=== PATIENT | male | born 1950 | race Caucasian/White ===

== ENCOUNTER 2019-08-18 17:09 | Emergency (ER) | payer MEDICARE, OTHER ==
[~2019-08-18] VITALS: Ht 172.7 cm; Wt 99.8 kg
[~2019-08-18 17:09] MED LIST: BACTRIM DS TAB1 EAC1 ORAL; LIDODERM700 M1 TOPIC
--- NOTE | 2019-08-18 17:22 | NUR ---
ED Nurse Note: PT AMBUALTED TO ED WITH CANE ON STEADY GAIT DUE TO SHORTNESS OF BREATH AND BACK PAIN X 4 DAYS. PT STATES HE HAS HX OF COPD. NO NAD NOTED
[2019-08-18 17:25] VITALS: BP 155/77
--- NOTE | 2019-08-18 17:30 | NUR ---
ED Nurse Note: blood specimen collected, sent to lab.
--- NOTE | 2019-08-18 18:00 | NUR ---
ED Nurse Note: IV site established, patent and intact.
[2019-08-18 18:23] LABS: ANION GAP 5 mmol/L (5-15); BLOOD UREA NITROGEN 41 mg/dL (7-18); CALCIUM 8.8 MG/DL (8.5-10.1); CARBON DIOXIDE 30 MMOL/L (21-32); CHLORIDE 107 MMOL/L (98-107); CREATININE 1.6 MG/DL (0.55-1.30); POTASSIUM 5.8 MMOL/L (3.5-5.1); SODIUM 142 MMOL/L (136-145)
[2019-08-18 18:28] LABS: ALANINE AMINOTRANSFERASE 14 U/L (12-78); ALBUMIN/GLOBULIN RATIO 0.7 (1.0-2.7); ALKALINE PHOSPHATASE 81 U/L (46-116); ASPARTATE AMINO TRANSFERASE 22 U/L (15-37); BILIRUBIN,TOTAL 0.3 MG/DL (0.2-1.0)
[2019-08-18] MEDS ORDERED: Albuterol ud Inhalation HHN ONE (18:30)
[2019-08-18] MEDS ORDERED: LORazepam 1mg tab ORAL ONE (18:30)
[2019-08-18] MEDS ORDERED: Nitroglycerin 2% oint pkt TOPIC ONE (18:30)
[2019-08-18 18:31] LABS: BASOPHILS % (AUTO) 3.4 % (0.0-2.0); EOSINOPHILS % (AUTO) 2.2 % (0.0-3.0); HEMATOCRIT 38.3 % (42.0-52.0); HEMOGLOBIN 11.6 G/DL (14.2-18.0); LYMPHOCYTES % (AUTO) 17.3 % (20.0-45.0); MEAN CORPUSCULAR VOLUME 91 FL (80-99); MONOCYTES % (AUTO) 13.6 % (1.0-10.0); NEUTROPHILS % (AUTO) 63.4 % (45.0-75.0); PLATELET COUNT 169 K/UL (150-450); RED BLOOD COUNT 4.19 M/UL (4.70-6.10); RED CELL DISTRIBUTION WIDTH 14.9 % (11.6-14.8); WHITE BLOOD COUNT 6.5 K/UL (4.8-10.8)
--- NOTE | 2019-08-18 19:06 | NUR ---
HAND-OFF: Report given to ozzie persaud. urine sent to lab
[2019-08-18 19:30] VITALS: BP 155/77
--- NOTE | 2019-08-18 19:30 | NUR ---
AMA: SEE AMA FORM.
--- NOTE | 2019-08-18 19:31 | NUR ---
ED Nurse Note: Patient decided to leave AMA. Stated he should lock his apartment accross the street. Patient was able to walk with cane, AAO x4, VSS at this time, skin is dry warm to touch. Patient stated will come back and register him self later.
--- NOTE | 2019-08-18 19:52 | Emergency Room Report ---
History of Present Illness General Chief Complaint: Dyspnea/Respdistress Source: Patient Present Illness HPI This patient has a history of congestive heart failure and COPD. He takes diuretics, antihypertensives and has inhalers for his COPD. He does continue to smoke tobacco. He complains of shortness of breath and difficulty sleeping at night secondary to the shortness of breath for the past 4 to 5 days. He denies cough or congestion. He denies fever chills. He denies abdominal pain. He has no other complaints. Allergies: Coded Allergies: No Known Allergies (Unverified , 08/04/19) Patient History Past Medical History: see triage record, HTN, PR, CAD, CHF Social History: Reports: smoking; Denies: alcohol use, drug use Reviewed Nursing Documentation: PMH: Agreed; PSxH: Agreed Nursing Documentation-PMH Past Medical History: No History, Except For Hx Cardiac Problems: Yes - CHF Hx Hypertension: Yes Hx Asthma: Yes Hx COPD: Yes Review of Systems All Other Systems: negative except mentioned in HPI Physical Exam Vital Signs Date Time Temp Pulse Resp B/P (MAP) Pulse Ox O2 Delivery O2 Flow Rate FiO2 08/18/19 17:16 98.1 96 23 155/77 (103) 78 Room Air 08/18/19 18:55 2.0 28 Sp02 EP Interpretation: reviewed, normal General Appearance: no apparent distress, alert, GCS 15, non-toxic Head: normocephalic, atraumatic Eyes: bilateral eye normal inspection, bilateral eye PERRL ENT: hearing grossly normal, normal pharynx, no angioedema, normal voice Neck: full range of motion, supple/symm/no masses Respiratory: chest non-tender, rales, speaking full sentences, wheezing, expiration Cardiovascular #1: regular rate, rhythm, no edema, edema - +2 pitting edema BLE Gastrointestinal: normal bowel sounds, non tender, soft, non-distended, no guarding, no rebound Rectal: deferred Musculoskeletal: back normal, normal range of motion, gait/station normal, non- tender, swelling - BLE edema w/ venous stasis dermatitis Neurologic: alert, motor strength/tone normal, oriented x3, sensory intact, responsive, speech normal Psychiatric: judgement/insight normal, memory normal, mood/affect normal, no suicidal/homicidal ideation Medical Decision Making Diagnostic Impression: Primary Impression: CHF exacerbation Additional Impression: COPD exacerbation ER Course This patient has CHF exacerbation. Also, he likely has a COPD exacerbation. The patient smelled heavily of tobacco and is continuing to smoke despite his COPD. He was also wheezing had rails on exam. I treated both the COPD and the congestive heart failure. He was given IV Lasix, Nitropaste to his chest wall and albuterol nebulizer treatments. Patient continued to have wheezing and shortness of breath. I plan on admitting this patient, however, he left AGAINST MEDICAL ADVICE stating that he needed to secure his home and that he would return. He insisted on leaving and is competent to make his own medical decisions. The patient left AGAINST MEDICAL ADVICE. Laboratory Tests Test 08/18/19 16:20 08/18/19 18:00 08/18/19 19:01 White Blood Count 6.5 K/UL (4.8-10.8) Red Blood Count 4.19 M/UL (4.70-6.10) L Hemoglobin 11.6 G/DL (14.2-18.0) L Hematocrit 38.3 % (42.0-52.0) L Mean Corpuscular Volume 91 FL (80-99) Mean Corpuscular Hemoglobin 27.7 PG (27.0-31.0) Mean Corpuscular Hemoglobin Concent 30.3 G/DL (32.0-36.0) L Red Cell Distribution Width 14.9 % (11.6-14.8) H Platelet Count 169 K/UL (150-450) Mean Platelet Volume 9.3 FL (6.5-10.1) Neutrophils (%) (Auto) 63.4 % (45.0-75.0) Lymphocytes (%) (Auto) 17.3 % (20.0-45.0) L Monocytes (%) (Auto) 13.6 % (1.0-10.0) H Eosinophils (%) (Auto) 2.2 % (0.0-3.0) Basophils (%) (Auto) 3.4 % (0.0-2.0) H Sodium Level 142 MMOL/L (136-145) Potassium Level 5.8 MMOL/L (3.5-5.1) H Chloride Level 107 MMOL/L (98-107) Carbon Dioxide Level 30 MMOL/L (21-32) Anion Gap 5 mmol/L (5-15) Blood Urea Nitrogen 41 mg/dL (7-18) H Creatinine 1.6 MG/DL (0.55-1.30) H Estimate Glomerular Filtration Rate 43.2 mL/min (>60) Glucose Level 106 MG/DL (74-106) Calcium Level 8.8 MG/DL (8.5-10.1) Total Bilirubin 0.3 MG/DL (0.2-1.0) Aspartate Amino Transferase (AST) 22 U/L (15-37) Alanine Aminotransferase (ALT) 14 U/L (12-78) Alkaline Phosphatase 81 U/L (46-116) Troponin I 0.000 ng/mL (0.000-0.056) Total Protein 7.5 G/DL (6.4-8.2) Albumin 3.0 G/DL (3.4-5.0) L Globulin 4.5 g/dL Albumin/Globulin Ratio 0.7 (1.0-2.7) L Urine Opiates Screen Pending Urine Barbiturates Screen Pending Phencyclidine (PCP) Screen Pending Urine Amphetamines Screen Pending Urine Benzodiazepines Screen Pending Urine Cocaine Screen Pending Urine Marijuana (THC) Screen Pending EKG Diagnostic Results Rate: normal Rhythm: NSR ST Segments: no acute changes Other Impression RBBB Rhythm Strip Diag. Results EP Interpretation: yes Rate: 80's Rhythm: NSR, no PVC's, no ectopy Chest X-Ray Diagnostic Results Chest X-Ray Diagnostic Results : Chest X-Ray Ordered: Yes # of Views/Limited/Complete: 1 View Indication: Shortness of Breath EP Interpretation: Yes Interpretation: other - Diffuse patchy opacities Impression: Other - Findings c/w CHF Last Vital Signs Date Time Temp Pulse Resp B/P (MAP) Pulse Ox O2 Delivery O2 Flow Rate FiO2 08/18/19 18:55 91 23 99 Nasal Cannula 2.0 28 88 21 96 08/18/19 18:29 155/77 08/18/19 17:25 98.1 Disposition: AGAINST MEDICAL ADVICE Condition: Serious Scripts Unable to Obtain Active Prescriptions or Reported Meds Referrals: NOT CHOSEN IPA/,REFERRING (PCP) Jessi Zavala DO Aug 18, 2019 19:52
--- NOTE | 2019-08-19 13:55 | Diagnostic Imaging Report ---
Indication: Dyspnea Comparison: None A single view chest radiograph was obtained. Findings: No definite infiltrate or pulmonary vascular congestion identified. The heart is enlarged. The aorta is mildly enlarged consistent with atherosclerotic vascular disease. The bones are osteopenic. Impression: No acute disease
== END 2019-08-18 19:30 | disposition left against medical advice (07) ==
LOC: EDSEX → EMR 17:45 → CANBEDREQ 19:49
DX: I11.0 Hypertensive heart disease with heart failure (principal); I50.9 Heart failure, unspecified; J44.1 Chronic obstructive pulmonary disease with (acute) exacerbation; I25.2 Old myocardial infarction
CPT/HCPCS: 36415; 71045; 80053; 80307; 84484; 85025; 93005; 96374; 99284; J1940

== ENCOUNTER 2019-08-21 23:20 | Inpatient (IN) | payer MEDICARE, OTHER ==
[~2019-08-21] VITALS: Ht 162.6 cm; Wt 99.8 kg
--- NOTE | 2019-08-21 23:34 | NUR ---
ED Nurse Note: PT AMBULATED INTO ED FROM HOME CO SOB X 4 DAYS AND. PT REPORTS HX OF CHF AND COPD. PT DENIES USING OXYGEN AT HOME. PT DENIES HAVING PAIN, FEVER, BODY ACHES, CHILLS. PT SPO2 86% RA; APPLIED 4L OXYGEN NC TO ACHIEVE 95% SPO2. ERMD AWARE. AWAITING ERMD AT BEDSIDE
[2019-08-21 23:35] VITALS: BP 128/65
--- NOTE | 2019-08-21 23:40 | NUR ---
ED Nurse Note: ERMD AT BEDSIDE
[2019-08-22] VITALS (8 sets, daily range): BP systolic 112–151; BP diastolic 53–90
--- NOTE | 2019-08-22 00:05 | NUR ---
ED Nurse Note: ALL BLOOD WORK DRAWN AND SENT TO LAB
--- NOTE | 2019-08-22 00:09 | Emergency Room Report ---
History of Present Illness General Chief Complaint: Dyspnea/Respdistress Source: Patient Present Illness HPI This is a 69-year-old male with a history of COPD. He also said he has a history of CHF. He continues to smoke but much less. He presents with chief plane of shortness of breath. This been ongoing for over a week. He was here a few days ago but signed out AMA. He said is worse with exertion and lying flat. Coughing is nonproductive nature. Denies any fever or chills. Some mild increase in swelling. No chest pain. Not on oxygen at home. Allergies: Coded Allergies: No Known Allergies (Unverified , 08/04/19) Patient History Past Medical History: see triage record, old chart reviewed, HTN, CHF, COPD Past Surgical History: none Pertinent Family History: none Social History: Reports: smoking Immunizations: other Reviewed Nursing Documentation: PMH: Agreed; PSxH: Agreed Nursing Documentation-PMH Past Medical History: No History, Except For Hx Cardiac Problems: Yes - CHF Hx Hypertension: Yes Hx Asthma: Yes Hx COPD: Yes Review of Systems Eye: Denies: eye pain, blurred vision ENT: Denies: ear pain, nose congestion, throat swelling Respiratory: Reports: cough, shortness of breath Cardiovascular: Denies: chest pain, palpitations Gastrointestinal: Denies: abdominal pain, diarrhea, nausea, vomiting Musculoskeletal: Denies: back pain, joint pain Skin: Denies: rash Neurological: Denies: headache, numbness Endocrine: Denies: increased thirst, increased urine Hematologic/Lymphatic: Denies: easy bruising All Other Systems: negative except mentioned in HPI Physical Exam Vital Signs Date Time Temp Pulse Resp B/P (MAP) Pulse Ox O2 Delivery O2 Flow Rate FiO2 08/21/19 23:27 99.7 92 25 124/66 (85) 85 Room Air Vitals with hypoxia Sp02 EP Interpretation: reviewed, abnormal General Appearance: well appearing, alert, mild distress Head: normocephalic, atraumatic Eyes: bilateral eye PERRL, bilateral eye EOMI ENT: hearing grossly normal, normal pharynx Neck: full range of motion, supple, no meningismus Respiratory: chest non-tender, rhonchi, wheezing Cardiovascular #1: regular rate, rhythm, no murmur Gastrointestinal: normal bowel sounds, non tender, no mass, no organomegaly, no bruit, non-distended Musculoskeletal: back normal, normal range of motion, gait/station normal, other - Chronic lymphedema with piting edema Psychiatric: mood/affect normal Medical Decision Making Diagnostic Impression: Primary Impression: COPD exacerbation Additional Impressions: CHF exacerbation Qualified Codes: I50.9 - Heart failure, unspecified Opiate abuse, continuous WYATT (acute kidney injury) ER Course Patient presents with shortness of breath. He was wheezing and was hypoxic. He has a combination of CHF and COPD. He improved greatly after giving breathing treatment. I gave him Lasix also. Patient was doing well and said he needs to go to the bathroom. Nursing staff want him to use a urinal at bedside but he insists on going to the bathroom. He said he cannot urinate by the bedside. He took his book bag with him and when he came back after 20 minutes or so he was very lethargic. Pupils were 2 to 3 mm and responsive. Nursing staff went through his book bag and found a small insulin needle. It was empty. I gave him Narcan and that woke him up. When I asked him if he injected any heroin or any opiates, he denies it. He said he took something to help him calm down. Patient has a history of IV drug abuse. Because of this I suspect that he has opiates or most likely heroin. I also have to place an EJ in him because he has no access from his drug abuse. Patient will be admitted for diuresis and breathing treatment. Contacted Dr. Mujica for admission. EKG Diagnostic Results Rate: normal Rhythm: NSR ST Segments: other - bifasicular block Rhythm Strip Diag. Results EP Interpretation: yes Rate: 97 Rhythm: NSR, no PVC's, no ectopy Chest X-Ray Diagnostic Results Chest X-Ray Diagnostic Results : Chest X-Ray Ordered: Yes # of Views/Limited/Complete: 1 View Indication: Shortness of Breath EP Interpretation: Yes Interpretation: no effusion, no pneumothorax, other - CM with vasc congestion Impression: Other - CM with chf Electronically Signed by: Trenton Marti MD Last Vital Signs Date Time Temp Pulse Resp B/P (MAP) Pulse Ox O2 Delivery O2 Flow Rate FiO2 08/21/19 23:27 99.7 92 25 124/66 (85) 85 Room Air Status: improved Disposition: ADMITTED INPATIENT Condition: Serious Scripts Unable to Obtain Active Prescriptions or Reported Meds Trenton Marti MD Aug 22, 2019 00:09
[2019-08-22] MEDS ORDERED: Solu-MEDROL 125mg Inj IVP ONE (00:15)
[2019-08-22] MEDS ORDERED: Albuterol ud Inhalation HHN ONE ×2 (00:15→01:15)
--- NOTE | 2019-08-22 00:16 | NUR ---
ED Nurse Note: ALL MEDICATIONS ADMINISTERED, NO S/S OF DISTRESS NOTED. VSS. PT RESTING IN BED.
--- NOTE | 2019-08-22 00:22 | NUR ---
ED Nurse Note: RT AT BEDSIDE
--- NOTE | 2019-08-22 01:12 | NUR ---
ED Nurse Note: RT AT BEDSIDE FOR SECOND BREATHING TX PER ERMD
[2019-08-22 01:13] LABS: BASOPHILS % (AUTO) 2.8 % (0.0-2.0); EOSINOPHILS % (AUTO) 0.7 % (0.0-3.0); HEMATOCRIT 38.1 % (42.0-52.0); HEMOGLOBIN 12.5 G/DL (14.2-18.0); LYMPHOCYTES % (AUTO) 19.7 % (20.0-45.0); MEAN CORPUSCULAR VOLUME 87 FL (80-99); MONOCYTES % (AUTO) 12.1 % (1.0-10.0); NEUTROPHILS % (AUTO) 64.8 % (45.0-75.0); PLATELET COUNT 188 K/UL (150-450); RED CELL DISTRIBUTION WIDTH 14.3 % (11.6-14.8); WHITE BLOOD COUNT 7.3 K/UL (4.8-10.8)
[2019-08-22 01:22] LABS: ANION GAP 4 mmol/L (5-15); BLOOD UREA NITROGEN 51 mg/dL (7-18); CALCIUM 9.2 MG/DL (8.5-10.1); CARBON DIOXIDE 33 MMOL/L (21-32); CHLORIDE 103 MMOL/L (98-107); CREATININE 2.2 MG/DL (0.55-1.30); POTASSIUM 5.7 MMOL/L (3.5-5.1); SODIUM 140 MMOL/L (136-145)
[2019-08-22 01:34] LABS: APPEARANCE,URINE CLEAR; BILIRUBIN, URINE NEGATIVE (NEGATIVE); GLUCOSE, URINE (UA) NEGATIVE (NEGATIVE); KETONES,URINE NEGATIVE (NEGATIVE); LEUKOCYTE ESTERASE ,URINE NEGATIVE (NEGATIVE); NITRITE,URINE NEGATIVE (NEGATIVE); PH,URINE 5 (4.5-8.0); PROTEIN,URINE 3+ (NEGATIVE); UROBILINOGEN,URINE NORMAL MG/DL (0.0-1.0)
[2019-08-22 01:34] LABS: ALANINE AMINOTRANSFERASE 14 U/L (12-78); ALBUMIN 3.3 G/DL (3.4-5.0); ALBUMIN/GLOBULIN RATIO 0.7 (1.0-2.7); ALKALINE PHOSPHATASE 89 U/L (46-116); ASPARTATE AMINO TRANSFERASE 13 U/L (15-37); BILIRUBIN,TOTAL 0.3 MG/DL (0.2-1.0)
[2019-08-22 01:37] LABS: COLOR,URINE YELLOW
--- NOTE | 2019-08-22 01:37 | Diagnostic Imaging Report ---
EXAM: XR Chest, 1 View CLINICAL HISTORY: SOB TECHNIQUE: Frontal view of the chest. COMPARISON: 08/18/2019 IMPRESSION: Cardiomegaly. Low lung volumes. Bibasilar opacities, possibly aspiration versus atelectasis. No effusion.
--- NOTE | 2019-08-22 01:45 | NUR ---
ED Nurse Note: UA SENT TO LAB
[2019-08-22] MEDS ORDERED: Naloxone 1mg/ml 2ml ONE (02:30)
--- NOTE | 2019-08-22 02:40 | NUR ---
ED Nurse Note: PT RECEIVED NARCAN D/T BEING UNRESPONSIVE IN BED DESPITE ATTEMPTS AT AROUSAL, MENTALITY CHANGE, AAO X 1. NURSE SUSPECTS PT TOOK NAROTICS WHILE IN RESTROOM D/T PT BRINGING A BAG INTO RESTROOM WITH HIM AND EXPERINCED CHANGE IN LOC AFTERWARDS.
[2019-08-22] MEDS: Naloxone 1mg/ml 2ml IVP ONE ×2 (02:45→05:49)
[2019-08-22] MEDS ORDERED: Acetaminophen 650 MG SUPP RECTAL PRN (03:00)
[2019-08-22] MEDS ORDERED: Albuterol ud Inhalation HHN SCH (03:00)
--- NOTE | 2019-08-22 03:10 | NUR ---
ED Nurse Note: PT SWITCHED ROOMS D/T EXCESSIVE SHOUTING; ERMD AWARE
--- NOTE | 2019-08-22 04:05 | NUR ---
ED Nurse Note: REPORT GIVEN TO VEE [place] ON TELEMETRY UNIT.
--- NOTE | 2019-08-22 04:10 | NUR ---
ED Nurse Note: pt refused vre/cre swab; ermd aware
--- NOTE | 2019-08-22 04:30 | NUR ---
ADMITTED 69 YEAR OLD MALE FROM HOME HERE DUE TO COPD EXACERBATION. HE IS A/OX2. VSS.HEAD TO TOE ASSESSMENT DONE. ORIENTED TO UNIT AND STAFF. EDUCATED ON PLAN OF CARE. EDUCATED ON RISK FOR SKIN BREAKDOWN AND FALL RISK PRECAUTIONS. PT MADE AWARE TO NOT GET OOB WITHOUT ASSISTANCE. BED ALARM ON, FALL RISK SIGN ON DOOR/PT. SAFE AND CLUTTER FREE ENVIRONMENT PROVIDED. CALL LIGHT WITHIN REACH AT ALL TIMES. Addendum: 08/22/19 at 0753 by Catia Hurt RN $408.00 IN ROGERS AT BEDSIDE. CONFIRMED WITH ED VEE MCLEAN AT TIME OF ADMISSION. PT REFUSED TO SEND ROGERS WITH TRAINING DEVELOPMENT DIRECTOR PER FACILITY PROTOCOL. CHARGE NURSE NOTIFIED. WILL ENDORSE TO DAY SHIFT RN.
--- NOTE | 2019-08-22 04:30 | NUR ---
ER DISCHARGE NOTE: Patient is cleared to be discharged to telemetry unit per ERMD, pt is aox 3, 6L simple face mask. pt took all belongings. VSS, no s/s of distress noted. Pt transferred to unit on monitor with DISTRIBUTION ESTIMATOR and RN.
--- NOTE | 2019-08-22 06:09 | NUR ---
SPOKE WITH MD Shin ADAM TO MAKE AWARE OF NEW ADMISSION. MADE AWARE OF PATIENT'S HISTORY, UA POSITIVE FOR OPIOIDS. MADE AWARE PT DENIES TAKING MEDICATION AT HOME AND ALSO MADE AWARE HE IS CURRENTLY SR WITH BBB. MD ADAM VERBALIZED UNDERSTANDING AND STATES HE WILL VISIT PATIENT AND PUT IN HIS OWN ADMITTING ORDERS ONCE HE VISITS THE PATIENT. Addendum: 08/22/19 at 0750 by Catia Hurt RN MADE AWARE DURING TIME OF CONVERSATION VIA TELEPHONE OF TODAY'S 08/22/19 CURRENT LABS INCLUDING NEGATIVE TROPONIN, BNP 727 AND POTASSIUM 5.7, PER NO NEW ORDERS (STATED HE WILL REVIEW PT'S CHART ONCE HE ARRIVES TO HOSPITAL).
[2019-08-22] MEDS ORDERED: Albuterol/Ipratropium 3ml neb HHN SCH (07:00)
[2019-08-22] MEDS ORDERED: Naloxone 2 MG in D5W 500ml 498 ML IV SCH (07:00)
--- NOTE | 2019-08-22 07:30 | NUR ---
GAVE FULL REPORT TO SARAH BAXTER. PT RESTING COMFORTABLY IN BED. NO APPARENT DISTRESS.
[2019-08-22] MEDS: Albuterol/Ipratropium 3ml neb HHN SCH ×4 (07:36→19:00)
--- NOTE | 2019-08-22 07:40 | NUR ---
$408.00 IN ROGERS AND CIGARETTES AT BEDSIDE. CONFIRMED WITH VEE SMITH AT TIME OF SHIFT CHANGE. PT REFUSED TO SEND ROGERS WITH COORDINATOR OF ONLINE PROGRAMS PER FACILITY PROTOCOL AND REQUESTING TO KEEP CIGARETTES INSIDE BACKPACK. EDUCATED ON FACILITY PROTOCOL (NO SMOKING).VERBALIZED UNDERSTANDING. DAY SHIFT CHARGE NURSE NOTIFIED.
[2019-08-22] MEDS ORDERED: Sodium Polystyrene Sulfonate 15gm Powder ORAL SCH (08:00)
[2019-08-22] MEDS ORDERED: cefTRIAXone 1 GM in D5W 55 ML IVPB SCH (08:00)
--- NOTE | 2019-08-22 08:15 | History and Physical Report ---
DATE OF ADMISSION: 08/22/2019 CHIEF COMPLAINT: CHF and COPD exacerbation. HISTORY OF PRESENT ILLNESS: The patient is a 69-year-old male. He is a poor historian. He has a history of COPD and congestive heart failure. He was brought in by paramedics with complaints of four days of shortness of breath. He apparently is a [facility]. I spoke to one of his friends, but he is unaware of any of his past medical history. The patient is unable to provide any history. Currently, there are no reports of any fevers or chills. No chest pain. On evaluation in the emergency room, the patient was hypoxic and placed on supplemental oxygen. His chest x-ray showed bibasilar opacities, possibly aspiration versus atelectasis. His tox screen was positive for opiates. He was given a dose of Lasix and breathing treatments. He is now admitted for further evaluation and care. PAST MEDICAL HISTORY: As above. PAST SURGICAL HISTORY: Unknown. CURRENT MEDICATIONS: Unknown. FAMILY HISTORY: Unknown. SOCIAL HISTORY: Unknown. ALLERGIES: There are no known drug allergies. REVIEW OF SYSTEMS: Unobtainable as the patient is confused and somnolent. PHYSICAL EXAMINATION: VITAL SIGNS: Temperature 99.7, pulse 92, respirations 24, and blood pressure 124/66. GENERAL: The patient is a chronically ill-appearing male, in no apparent distress. He opens his eyes, but is minimally verbal. He does nod yes or no. NECK: Supple. HEART: Regular rate and rhythm. LUNGS: Significant diminished breath sounds and scattered wheezes. ABDOMEN: Soft, nontender, and nondistended. Obese. EXTREMITIES: Significant for 3+ pitting edema. LABORATORY DATA: Opiate screen was positive. White count 7, hemoglobin 12, and platelets of 188,000. Sodium 140, potassium is 5.7, BUN 51, and creatinine 2.2. Natriuretic peptide was 727. ASSESSMENT: This is a 69-year-old male admitted with complaints of chronic obstructive pulmonary disease and congestive heart failure exacerbation, acute renal failure, and possible aspiration pneumonia. PLAN: 1. IV antibiotics. 2. Intravenous steroids and respiratory treatments. 3. Cautious diuresis. 4. Check a renal ultrasound and a 2D echo. 5. We will check a blood gas. 6. Consider Narcan. Davey Mujica M.D. DR: RANDI JOB#: [id number] CC:
--- NOTE | 2019-08-22 08:19 | NUR ---
NURSE NOTES: pt sleeping in bed on 4L simple mask. Pt on color television console monitor no signs or cardiac or respiratory distress at this time. Call light within reach. Bed is locked and in lowest position. will continue to monitor pt and follow plans of care. Pt has $408 dollars inside of his wallet, upon admission he stated he wanted to keep money with him. I will pt when he wakes up if he wants to put his money in the safe box for safer keeping.
[2019-08-22] MEDS ORDERED: Heparin 5000 units/ml inj SUBQ SCH (09:00)
[2019-08-22] MEDS ORDERED: Pantoprazole Inj IVP SCH (09:00)
--- NOTE | 2019-08-22 09:05 | NUR ---
NURSE NOTES: pt was found on the floor by Samantha and Gatehouse Attendant, they both assisted pt back to bed. Rapid response was called, they came and assessed pt. Neurochecks were done, Pt is not bleeding or has any complains of pain or weakness at this moment. V/s were taken, bp 141/67 R20 o293 HR 81, T98.2. Call light is within reach, bed is locked and in lowest position. Bed alarm has been reset. Pt stayed in bed calmly and fell sleep afterward. Pt urinal stayed at bedside. Advised pt. and educated to call nurse if he needs to get up again. Pt demonstrated how to use call light and stated he will call us next time hem needs to use restroom or will use urinal. Doctor was notified of pt. was found on the floor and no new orders were given. Also pt family member was advised of the same thing, message was left for family
--- NOTE | 2019-08-22 09:17 | NUR ---
NURSE NOTES: pt refused ABG test, pt agreed first and then refused because it was painful.
--- NOTE | 2019-08-22 09:17 | NUR ---
RESPIRATORY NOTE: Attempted to draw ABG per Dr. Mujica's order. Explained the indication and the process of ABG to the patient. Patient agreed to get it done. VEE Infante and RT Branden at bedside. However, when I started to poke the pt, pt became aggressive and told me to forget it, he didn't want to have blood drawn anymore. VEE Infante and I tried to convince the pt by telling him again the reasons we need to have ABG done but Pt still stated that he didn't want to get it done, and he wanted something for pain. Will try again later and continue to monitor pt.
[2019-08-22] MEDS: Solu-MEDROL 125mg Inj IVP SCH ×2 (09:38→14:00)
--- NOTE | 2019-08-22 12:39 | Diagnostic Imaging Report ---
EXAM: US Duplex Bilateral Lower Extremity Veins CLINICAL HISTORY: DVT TECHNIQUE: Real-time duplex ultrasound scan of the bilateral lower extremity veins integrating B-mode two-dimensional vascular structure, Doppler spectral analysis, color flow Doppler imaging and compression. COMPARISON: No relevant prior studies available. FINDINGS: Right deep veins: Unremarkable. No DVT in the right common femoral, femoral, proximal deep femoral or popliteal veins. The veins demonstrate normal color flow, are normally compressible, with normal phasic flow and/or augmentation response. Right superficial veins: Unremarkable. No thrombus in the visualized right great saphenous vein. Left deep veins: Unremarkable. No DVT in the left common femoral, femoral, proximal deep femoral or popliteal veins. The veins demonstrate normal color flow, are normally compressible, with normal phasic flow and/or augmentation response. Left superficial veins: Unremarkable. No thrombus in the visualized left great saphenous vein. Soft tissues: Soft tissue edema. IMPRESSION: No DVT demonstrated.
--- NOTE | 2019-08-22 12:41 | Diagnostic Imaging Report ---
EXAM: US Retroperitoneal Limited, Renal CLINICAL HISTORY: RENAL-A TECHNIQUE: Real-time ultrasound of the retroperitoneum (limited) with image documentation. COMPARISON: No relevant prior studies available. FINDINGS: Right kidney: Right kidney 11.1 cm. No hydronephrosis. Small hypoechoic foci. Left kidney: Left kidney 10.4 cm. No hydronephrosis. Small hypoechoic foci. Bladder: Bladder volume 826 mL. IMPRESSION: No hydronephrosis.
--- NOTE | 2019-08-22 15:54 | NUR ---
CASE MANAGEMENT: INITIAL REVIEW 08/22/2019 69 YO M PRESENTED TO ED FROM HOME CC: DYSPNEA 85% ON RA PMHx: HTN. CHF. COPD. SI:COPD EXACERBATION. T 99.7 HR 92 RR 25 B/P 124/66 SATS 85% ON RA LABS: K 5.7 CO2 33 BUN 51 CR 2.2 GLU 121 AST 13 BNP 727 IS: ALBUTEROL HHN X2 SOLU MEDROL IV X1 LASIX IV X1 CXR IMPRESSION: Cardiomegaly. Low lung volumes. Bibasilar opacities, possibly aspiration versus atelectasis. No effusion. US RENAL IMPRESSION: No hydronephrosis. Venous Duplex Scan Car Leg: IMPRESSION: No DVT demonstrated. PATIENT ADMITTED TO TELE 08/22/2019 @ 0227 DCP: PATIENT TO BE DISCHARGED TO HOME ONCE MEDICALLY CLEARED. PLAN OF CARE: 2D ECHO DIURESIS INTERQUAL MET
[2019-08-22] MEDS ORDERED: Sodium Polystyrene Sulfonate Enema RECTAL ONE (17:30)
--- NOTE | 2019-08-22 18:40 | NUR ---
NURSE NOTES: pt left AMA [id number] [phone] Pt had been sleeping all day suddenly he woke up about 30min ago saying he wants to leave AMA. Pt keeps repeating this is his right and he doesn't have to explained anything to me. Pt stated that he came here to the hospital because he couldn't sleep at home and he just wanted Ativan to go to sleep. Pt says he feels better and he has his inhalers at home that he can use for his shortness of breath. Pt is alert X4, knows he is leaving against doctor's advise but does not care. Pt was told to stay and continue to get treatment here but he said no "I feel better I have some things to do at home, I need to leave I live accross the street. Pt, gambling monitor was taken off, ID medical band off. Pt took all his belongings including cane and $408.00 cason. Pt signed belonging sheet and left walking home using cane, Pt took his backpack and all his belonging with him when leaving the hospital. pt was advised to return to the hospital if he starts feeling bad again. Pt verbalized, he will return to the hospital if he starts feeling bad again.
--- NOTE | 2019-08-25 07:48 | CDS Physician Query ---
Clarification is required for compliance, coding accuracy, and to reflect severity of illness for this patient Dear Dr. Davey Mujica M.D. Date: 08/25/2019 Manager Credit/CDS Name: Osorio Wu This is a 69-year-old male admitted with complaints of chronic obstructive pulmonary disease and congestive heart failure exacerbation, acute renal failure, and possible aspiration pneumonia. "congestive heart failure exacerbation" documented in H&P BNP:727 Tx: IV FUROSEMIDE Please Clarify: Type [] Systolic [] Diastolic [x] Systolic & Diastolic (Combined) [] Other: Present on Admission: [x] Yes [] No [] Clinically Undetermined Physician signature Date Please also document in your Progress Notes and/or Discharge Summary and indicate if the condition was present on admission. MARGARITOD
--- NOTE | 2019-08-25 08:56 | Discharge Summary ---
Discharge Summary Discharge Summary _ DATE OF ADMISSION: 08/22/2019 DATE OF DISCHARGE: 08/22/2019 Patient left AGAINST MEDICAL ADVICE REASON FOR ADMISSION: 69 years old male , under the [place] medical care, with history of congestive heart failure, COPD, brought by paramedics complaining of shortness of breath for 4 days. Patient was a poor historian and unable to provide any more information. No reports of fever or chills. No chest pain. On evaluation patient was hypoxic and placed on supplemental oxygen. BUN 51, creatinine 2.2. Potassium 5.7. Troponin negative, pro BNP 727. EKG revealed normal sinus rhythm with right bundle branch block and left anterior fascicular block. Chest x-ray revealed bibasilar opacities, possibly aspiration versus atelectasis . Urine toxicology screen was positive for opiates. In emergency department patient received diuretic/Lasix and nebulizing treatment with bronchodilator. Patient subsequently admitted for further evaluation and management. HOSPITAL COURSE: Patient admitted to telemetry floor. Patient started on intravenous steroids and nebulizing treatment with bronchodilator. Supplemental oxygen titrated to keep pulse oximetry above 90%. Patient was continued on cautious diuresis with close monitoring of volumes and renal parameters. Patient started on empiric antibiotic for possible aspiration pneumonia. 2D echo and renal ultrasound ordered. Venous duplex bilateral lower extremity revealed no evidence of acute DVT. Renal ultrasound revealed no hydronephrosis. Hyperkalemia was treated. DVT and GI prophylaxis provided. In the evening patient stated that he felt better and wanted to go home. The risks and consequences of signing AGAINST MEDICAL ADVICE were discussed with patient in detail. Patient verbalized understanding, nevertheless signed AMA form and left. FINAL DIAGNOSES: COPD exacerbation CHF exacerbation Acute renal failure Possible aspiration pneumonia I have been assigned to dictate discharge summary for this account. I was not involved in the patient's management. Elis Donis NP Aug 25, 2019 08:56
== END 2019-08-22 18:45 | disposition left against medical advice (07) | DRG 178 ==
LOC: EDSEX → EMR 23:45 → 2E 08-22 02:27 → EDBEDREQ 08-22 02:57 → 2E 08-22 05:02
DX: J69.0 Pneumonitis due to inhalation of food and vomit (principal); J44.1 Chronic obstructive pulmonary disease with (acute) exacerbation; N17.9 Acute kidney failure, unspecified; I45.2 Bifascicular block; I11.0 Hypertensive heart disease with heart failure; I50.9 Heart failure, unspecified; F17.200 Nicotine dependence, unspecified, uncomplicated; F11.10 Opioid abuse, uncomplicated
CPT/HCPCS: 36415; 71045; 76770; 80053; 80307; 81003; 83036; 83880; 84484; 85025; 93005; 93970; 94640; 94664; 96374; 96375; 99285; G0480; J2310; J7620

== ENCOUNTER 2019-08-29 22:02 | Emergency (ER) | payer MEDICARE, OTHER ==
[~2019-08-29] VITALS: Ht 172.7 cm; Wt 99.8 kg
--- NOTE | 2019-08-29 22:15 | NUR ---
not in waiting room
--- NOTE | 2019-08-29 22:36 | NUR ---
ED Nurse Note: pt ambulated from home CO trouble sleeping at night x 3 days. Pt reports regularly taking medication to help with sleep. PT BP elevated -- ERMD made aware. awaiting ERMD at bedside
--- NOTE | 2019-08-29 22:45 | NUR ---
ED Nurse Note: ERMD at bedside
[2019-08-29 22:46] VITALS: BP 194/84
[2019-08-29] MEDS ORDERED: ATIVAN0.5 MG ORAL (22:57)
[2019-08-29 23:09] VITALS: BP 182/87
--- NOTE | 2019-08-29 23:09 | NUR ---
ER DISCHARGE NOTE: Patient is cleared to be discharged home per ERMD, pt is aox4, on room air, with stable vital signs. pt was given dc and prescription instructions, pt was able to verbalize understanding, pt id band removed. pt is able to ambulate with steady gait. pt took all belongings.
--- NOTE | 2019-08-29 23:24 | Emergency Room Report ---
History of Present Illness General Chief Complaint: General Complaint Source: Patient Present Illness HPI 69 yo male presents ED for evaluation. Is complaining of anxiety. Unable to sleep for the last 3 days. History of heroin use but states that he stopped. States has been feeling anxious since. Denies hearing voices. Denies SI or HI. Denies any other drug use. No other aggravating relieving factors. Denies any other associated symptoms Allergies: Coded Allergies: No Known Allergies (Unverified , 08/04/19) Patient History Past Medical History: HTN, asthma, COPD Past Surgical History: none Pertinent Family History: none Social History: Reports: drug use; Denies: smoking, alcohol use Immunizations: UTD Reviewed Nursing Documentation: PMH: Agreed; PSxH: Agreed Nursing Documentation-PMH Hx Cardiac Problems: Yes Hx Hypertension: Yes Hx Asthma: Yes Hx COPD: Yes Hx Cancer: No Hx Gastrointestinal Problems: No Hx Neurological Problems: No Review of Systems All Other Systems: negative except mentioned in HPI Physical Exam Vital Signs Date Time Temp Pulse Resp B/P (MAP) Pulse Ox O2 Delivery O2 Flow Rate FiO2 08/29/19 22:36 98.2 80 16 194/84 (120) 88 Room Air Sp02 EP Interpretation: reviewed, normal General Appearance: no apparent distress, alert, GCS 15, non-toxic Head: normocephalic, atraumatic Eyes: bilateral eye normal inspection, bilateral eye PERRL ENT: hearing grossly normal, normal pharynx, no angioedema, normal voice Neck: full range of motion, supple/symm/no masses Respiratory: chest non-tender, lungs clear, normal breath sounds, speaking full sentences Cardiovascular #1: regular rate, rhythm, no edema Cardiovascular #2: 2+ carotid (R), 2+ carotid (L), 2+ radial (R), 2+ radial (L) , 2+ dorsalis pedis (R), 2+ dorsalis pedis (L) Gastrointestinal: normal bowel sounds, non tender, soft, non-distended, no guarding, no rebound Rectal: deferred Genitourinary: normal inspection, no CVA tenderness Musculoskeletal: back normal, normal range of motion, gait/station normal, non- tender Neurologic: alert, motor strength/tone normal, oriented x3, sensory intact, responsive, speech normal Psychiatric: judgement/insight normal, memory normal, no suicidal/homicidal ideation, no delusions, anxious Reflexes: 3+ bicep (R), 3+ bicep (L), 3+ tricep (R), 3+ tricep (L), 3+ knee (R) , 3+ knee (L) Skin: no rash Lymphatic: no adenopathy Medical Decision Making Diagnostic Impression: Primary Impression: Anxiety ER Course Hospital Course 69 yo M presents with anxiety, insomnia. Differential diagnoses include: psychosis, substance abuse, anxiety Clinical course Patient placed in history physical exam reveals elderly male in no acute distress. Patient maintaining good eye contact. Answering questions appropriately. No signs of hallucinations. No SI or HI. Appears anxious. States he is withdrawing from heroin. He is not requesting Suboxone or other opiate agonists. Has used these in the past. I agreed to provide him with short course of low-dose Ativan. Safe for discharge with close outpatient follow-up. I will provide referrals I. I feel this is a highly complex case requiring extensive working including EKG/Rhythm strip, Xray/CT/US, Blood/urine lab work, repeat exams while in ED, and administration of strong opiates/narcotics for pain control, admission to hospital or close patient follow up. Diagnosis - anxiety Stable and discharged to home with Rx Ativan. Followup with PMD. Return to ED if symptoms recur or worse Last Vital Signs Date Time Temp Pulse Resp B/P (MAP) Pulse Ox O2 Delivery O2 Flow Rate FiO2 08/29/19 22:36 98.2 80 16 194/84 (120) 88 Room Air Status: improved Disposition: HOME, SELF-CARE Condition: Stable Scripts Lorazepam* (ATIVAN*) 0.5 Mg Tablet 0.5 MG ORAL THREE TIMES A DAY, #9 TAB Prov: Bernardo Hamlin MD 08/29/19 Referrals: [facility] Patient Instructions: Panic Attacks, [id number] Bernardo Hamlin MD Aug 29, 2019 23:24
== END 2019-08-29 23:09 | disposition home or self-care (01) ==
LOC: EDSEX 22:02 → EMR 22:55
DX: F41.9 Anxiety disorder, unspecified (principal); G47.00 Insomnia, unspecified; I10 Essential (primary) hypertension; J44.9 Chronic obstructive pulmonary disease, unspecified
CPT/HCPCS: 99282

== ENCOUNTER 2019-09-02 16:07 | Emergency (ER) | payer MEDICARE, OTHER ==
[~2019-09-02] VITALS: Ht 172.7 cm; Wt 99.8 kg
[~2019-09-02 16:07] MED LIST changes: +ATIVAN0.5 MG ORAL
--- NOTE | 2019-09-02 16:32 | NUR ---
ED Nurse Note: REPORTED TO JORGE RN O2 SAT OF 78 %.
[2019-09-02 16:35] VITALS: BP 114/65
--- NOTE | 2019-09-02 16:35 | NUR ---
ED Nurse Note: Pt walked into ED from home for original c/o insomnia. Upon ED triage, triage nurse reported low oxygen saturation of 78% RA. Pt also reports being SOB especially when trying to sleep. Pt reports he stopped using heroin 5 days ago and is having anxiety and increased agitation due to withdrawl. Pt is aaox4 and ambulatory. Pt placed on ekg monitor tech and placed on 2L oxygen via NC. Pt oxygen saturation is 94% on 2L oxygen. Will continue to monitor.
[2019-09-02] MEDS ORDERED: Albuterol/Ipratropium 3ml neb HHN ONE (17:00)
[2019-09-02] MEDS ORDERED: LORazepam 1mg tab ORAL ONE (17:15)
--- NOTE | 2019-09-02 17:17 | Emergency Room Report ---
History of Present Illness General Chief Complaint: Dyspnea/Respdistress Source: Patient Present Illness HPI Patient is a 69-year-old male who presents after increased difficulty with breathing as well as increased anxiety. Prior history of COPD. He states he is currently withdrawing from heroin. He states he last used approximate 1 week ago. Reports having prior history of congestive heart failure and states that he takes diuretics daily. Denies any vomiting currently. Reports having some generalized anxiousness. Denies any fever. States he takes Spiriva as well as albuterol inhalers. Reports having no change in lower extremity swelling. Allergies: Coded Allergies: No Known Allergies (Unverified , 08/04/19) Patient History Past Medical History: see triage record Reviewed Nursing Documentation: PMH: Agreed; PSxH: Agreed Nursing Documentation-PMH Past Medical History: No History, Except For Hx Cardiac Problems: Yes - CHF Hx Hypertension: Yes Hx Asthma: Yes Hx COPD: Yes Hx Cancer: No Hx Gastrointestinal Problems: No Hx Neurological Problems: No Review of Systems All Other Systems: negative except mentioned in HPI Physical Exam Vital Signs Date Time Temp Pulse Resp B/P (MAP) Pulse Ox O2 Delivery O2 Flow Rate FiO2 09/02/19 16:26 98.8 71 23 114/65 (81) 78 Room Air 09/02/19 16:59 2.0 28 Sp02 EP Interpretation: reviewed, normal General Appearance: normal inspection, alert, obese, Chronically Ill Head: atraumatic ENT: normal ENT inspection, hearing grossly normal, normal voice Neck: normal inspection, full range of motion, supple, no bony tend Respiratory: normal inspection, no respiratory distress, no retraction, wheezing, expiration Cardiovascular #1: regular rate, rhythm, edema - 3+ edema Gastrointestinal: normal inspection, normal bowel sounds, non tender, soft, no guarding, no hernia Genitourinary: no CVA tenderness Musculoskeletal: normal inspection, back normal, normal range of motion Neurologic: alert, motor strength/tone normal, 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 Differential diagnosis include was not limited to opiate withdrawal, COPD exacerbation, CHF among others. Because of complexity of patient's case laboratory tests and imaging studies were ordered. Patient was given breathing treatment as well as IV Lasix. He was noted to have some baseline history of COPD. The patient was advised risk benefits alternatives of leaving AGAINST MEDICAL ADVICE and he indicated understanding and all questions are answered patient still continued want to leave and signed AGAINST MEDICAL ADVICE. Despite risks including but not limited to disability and worsening of current lifestyle. Labs Test 09/02/19 17:10 White Blood Count 11.4 K/UL (4.8-10.8) Red Blood Count 4.29 M/UL (4.70-6.10) Hemoglobin 11.9 G/DL (14.2-18.0) Hematocrit 37.1 % (42.0-52.0) Mean Corpuscular Volume 86 FL (80-99) Mean Corpuscular Hemoglobin 27.8 PG (27.0-31.0) Mean Corpuscular Hemoglobin Concent 32.2 G/DL (32.0-36.0) Red Cell Distribution Width 14.6 % (11.6-14.8) Platelet Count 169 K/UL (150-450) Mean Platelet Volume 7.7 FL (6.5-10.1) Neutrophils (%) (Auto) 67.6 % (45.0-75.0) Lymphocytes (%) (Auto) 14.3 % (20.0-45.0) Monocytes (%) (Auto) 14.8 % (1.0-10.0) Eosinophils (%) (Auto) 0.8 % (0.0-3.0) Basophils (%) (Auto) 2.5 % (0.0-2.0) Sodium Level 136 MMOL/L (136-145) Potassium Level 6.2 MMOL/L (3.5-5.1) Chloride Level 101 MMOL/L (98-107) Carbon Dioxide Level 28 MMOL/L (21-32) Anion Gap 6 mmol/L (5-15) Blood Urea Nitrogen 39 mg/dL (7-18) Creatinine 1.9 MG/DL (0.55-1.30) Estimat Glomerular Filtration Rate 35.4 mL/min (>60) Glucose Level 125 MG/DL (74-106) Calcium Level 8.8 MG/DL (8.5-10.1) Total Bilirubin 0.2 MG/DL (0.2-1.0) Aspartate Amino Transf (AST/SGOT) 21 U/L (15-37) Alanine Aminotransferase (ALT/SGPT) 11 U/L (12-78) Alkaline Phosphatase 75 U/L (46-116) Total Protein 7.1 G/DL (6.4-8.2) Albumin 2.7 G/DL (3.4-5.0) Globulin 4.4 g/dL Albumin/Globulin Ratio 0.6 (1.0-2.7) Last Vital Signs Date Time Temp Pulse Resp B/P (MAP) Pulse Ox O2 Delivery O2 Flow Rate FiO2 09/02/19 17:01 66 27 Nasal Cannula 2.0 28 09/02/19 16:59 100 95 09/02/19 16:26 98.8 114/65 (81) Status: unchanged Disposition: AGAINST MEDICAL ADVICE Condition: Serious Tha De Jesus MD Sep 02, 2019 17:17
[2019-09-02 17:43] LABS: BASOPHILS % (AUTO) 2.5 % (0.0-2.0); EOSINOPHILS % (AUTO) 0.8 % (0.0-3.0); HEMATOCRIT 37.1 % (42.0-52.0); HEMOGLOBIN 11.9 G/DL (14.2-18.0); LYMPHOCYTES % (AUTO) 14.3 % (20.0-45.0); MEAN CORPUSCULAR VOLUME 86 FL (80-99); MONOCYTES % (AUTO) 14.8 % (1.0-10.0); NEUTROPHILS % (AUTO) 67.6 % (45.0-75.0); PLATELET COUNT 169 K/UL (150-450); RED BLOOD COUNT 4.29 M/UL (4.70-6.10); RED CELL DISTRIBUTION WIDTH 14.6 % (11.6-14.8); WHITE BLOOD COUNT 11.4 K/UL (4.8-10.8)
[2019-09-02 17:50] LABS: ALANINE AMINOTRANSFERASE 11 U/L (12-78); ALBUMIN 2.7 G/DL (3.4-5.0); ALBUMIN/GLOBULIN RATIO 0.6 (1.0-2.7); ALKALINE PHOSPHATASE 75 U/L (46-116); ANION GAP 6 mmol/L (5-15); ASPARTATE AMINO TRANSFERASE 21 U/L (15-37); BILIRUBIN,TOTAL 0.2 MG/DL (0.2-1.0); BLOOD UREA NITROGEN 39 mg/dL (7-18); CALCIUM 8.8 MG/DL (8.5-10.1); CARBON DIOXIDE 28 MMOL/L (21-32); CHLORIDE 101 MMOL/L (98-107); CREATININE 1.9 MG/DL (0.55-1.30); SODIUM 136 MMOL/L (136-145)
[2019-09-02 17:54] LABS: POTASSIUM 6.2 MMOL/L (3.5-5.1)
--- NOTE | 2019-09-02 19:10 | NUR ---
HAND-OFF: Report given to VEE Sims.
--- NOTE | 2019-09-02 19:16 | NUR ---
ED Nurse Note: Received report from VEE Brennan. Patient resting in bed, no acute distress.
[2019-09-02 19:22] VITALS: BP 146/84
--- NOTE | 2019-09-02 20:10 | NUR ---
ED Nurse Note: Patient refusing to be admitted and wants to go home, ERMD notified.
[2019-09-02 20:40] VITALS: BP 166/77
--- NOTE | 2019-09-02 20:40 | NUR ---
AMA: Patient spoke to ERMD regarding leaving AMA, patient verbalized understanding of risk of leaving AMA. Patient signed AMA form. Patient aao x 4 and ambulatory with cane upon leaving AMA. SEE AMA FORM.
== END 2019-09-02 21:00 | disposition other institution (70) ==
LOC: EMR 19:20 → CANBEDREQ 21:07
DX: I50.9 Heart failure, unspecified (principal); J44.1 Chronic obstructive pulmonary disease with (acute) exacerbation; F41.9 Anxiety disorder, unspecified; I11.0 Hypertensive heart disease with heart failure; J45.909 Unspecified asthma, uncomplicated; F11.90 Opioid use, unspecified, uncomplicated; Z53.29 Procedure and treatment not carried out because of patient's decision for other reasons; Z79.51 Long term (current) use of inhaled steroids; Z79.899 Other long term (current) drug therapy
CPT/HCPCS: 36415; 80053; 85025; 93005; 99284; J7620

== ENCOUNTER 2019-09-04 04:41 | Emergency (ER) | payer OTHER ==
[~2019-09-04] VITALS: Ht 172.7 cm; Wt 99.8 kg
--- NOTE | 2019-09-04 04:45 | NUR ---
ED Nurse Note: Pt BIBA CO SOB, increased anxiety, trouble sleeping, and chest pain 10/22. Pt reports that he has been having these issues x 1 week. VSS elevated, pt placed on 2L NC d/t spo2 88% on RA. ERMD aware. Awaiting ERMD at bedside
[2019-09-04 04:46] VITALS: BP 193/80
[2019-09-04] MEDS ORDERED: Nitroglycerin Subl 0.4mg tab SL ONE (04:52)
--- NOTE | 2019-09-04 04:52 | NUR ---
ED Nurse Note: ERMD at bedside for initial assessment
--- NOTE | 2019-09-04 04:53 | NUR ---
ED Nurse Note: nitroglycerin administered SL; pt tolerated well. VS 168/79 HR 88 after administration.
--- NOTE | 2019-09-04 04:54 | NUR ---
ED Nurse Note: RT at bedside
--- NOTE | 2019-09-04 04:56 | Emergency Room Report ---
History of Present Illness General Chief Complaint: Dyspnea/Respdistress Source: Patient Present Illness HPI Patient is a 69-year-old male presents after increased difficulty with breathing. Gradual onset of symptoms. Patient had prior history of COPD as well as congestive heart failure. Had reported onset of symptoms this morning. He states that he had been withdrawing from heroin. Reports last use being 3 days ago. Patient had reportedly been having increased anxiety and difficulty with sleep. I seen the patient approximately 2 days ago with similar claims however at that time he stated that he had been off heroin for approximately 1 week ended left the hospital AGAINST MEDICAL ADVICE..Patient denies any vomiting. Allergies: Coded Allergies: No Known Allergies (Unverified , 08/04/19) Patient History Past Medical History: see triage record Reviewed Nursing Documentation: PMH: Agreed; PSxH: Agreed Nursing Documentation-PMH Hx Cardiac Problems: Yes - CHF Hx Hypertension: Yes Hx Asthma: Yes Hx COPD: Yes Hx Cancer: No Hx Gastrointestinal Problems: No Hx Neurological Problems: No Review of Systems All Other Systems: limited - Limited by poor historian Physical Exam Vital Signs Date Time Temp Pulse Resp B/P (MAP) Pulse Ox O2 Delivery O2 Flow Rate FiO2 09/04/19 04:36 98.4 87 18 235/110 (151) 99 Sp02 EP Interpretation: reviewed, normal General Appearance: alert, Chronically Ill Head: atraumatic ENT: normal ENT inspection, hearing grossly normal, normal voice Neck: normal inspection, full range of motion, supple, no bony tend Respiratory: normal inspection, no retraction, wheezing Cardiovascular #1: regular rate, rhythm, edema Gastrointestinal: normal inspection, normal bowel sounds, non tender, soft, no guarding, no hernia Genitourinary: no CVA tenderness Musculoskeletal: normal inspection, back normal, normal range of motion Neurologic: alert, motor strength/tone normal, diesel scoop operator III-XII nml as tested, oriented x3, responsive, speech normal, normal inspection Psychiatric: normal inspection, judgement/insight normal, mood/affect normal Skin: other - Venous stasis changes to both lower extremities. Medical Decision Making Diagnostic Impression: Primary Impression: COPD exacerbation Additional Impression: CHF exacerbation ER Course Patient presented for shortness of breath. Differential included but was not limited to anemia, pneumonia, pneumothorax, myocardial infarction, pericardial effusion, congestive heart failure, acidosis. Because of complexity of patient' s case laboratory tests and imaging studies were ordered. EKG interpreted by me showed normal sinus rhythm with a rate of 83 with bifascicular block unchanged from previous. Patient was given sublingual nitroglycerin as well as breathing treatments. He was noted to have improvement in his oxygenation after medications. Patient was endorsed to Dr. Hamlin pending lab testing. EKG Diagnostic Results Rate: normal Rhythm: NSR ST Segments: no acute changes Last Vital Signs Date Time Temp Pulse Resp B/P (MAP) Pulse Ox O2 Delivery O2 Flow Rate FiO2 09/04/19 04:36 98.4 87 18 235/110 (151) 99 Status: improved Condition: Stable Tha De Jesus MD Sep 04, 2019 04:56
--- NOTE | 2019-09-04 04:58 | NUR ---
ED Nurse Note: pt reports chest pain relieved slightly but remains 3/10. 2nd dose of nitroglycerin administered; pt tolerated well. BP 176/71 HR 87 after administration. ERMD aware.
[2019-09-04] MEDS ORDERED: Albuterol ud Inhalation HHN ONE (05:00)
[2019-09-04] MEDS ORDERED: Nitroglycerin Subl 0.4mg tab SL PRN (05:00)
[2019-09-04] MEDS ORDERED: Ipratropium 0.02% Inh Soln 2.5ml UD HHN ONE (05:00)
[2019-09-04] MEDS ORDERED: Furosemide 40mg tab ORAL ONE (05:00)
--- NOTE | 2019-09-04 05:15 | NUR ---
ED Nurse Note: Unable to obtain bloodwork despite various attempts; ERMD and charge nurse notified
--- NOTE | 2019-09-04 05:35 | NUR ---
ED Nurse Note: ERMD at bedside to attempt EJ
--- NOTE | 2019-09-04 05:40 | NUR ---
ED Nurse Note: Charge nurse at bedside Addendum: 09/04/19 at 0658 by DIYA ED Nurse Note: Charge nurse at bedside; unable to start successful IV line
--- NOTE | 2019-09-04 06:30 | NUR ---
ED Nurse Note: Lab called to attempt blood draw after failed attempts by nurse, charge nurse, and ERMJose
[2019-09-04 06:40] VITALS: BP 170/65
--- NOTE | 2019-09-04 06:46 | NUR ---
ED Nurse Note: Lab at bedside
[2019-09-04 07:08] LABS: BASOPHILS % (AUTO) 1.5 % (0.0-2.0); EOSINOPHILS % (AUTO) 0.3 % (0.0-3.0); HEMATOCRIT 38.7 % (42.0-52.0); HEMOGLOBIN 12.2 G/DL (14.2-18.0); LYMPHOCYTES % (AUTO) 9.3 % (20.0-45.0); MEAN CORPUSCULAR VOLUME 87 FL (80-99); MONOCYTES % (AUTO) 9.1 % (1.0-10.0); NEUTROPHILS % (AUTO) 79.7 % (45.0-75.0); PLATELET COUNT 186 K/UL (150-450); RED BLOOD COUNT 4.46 M/UL (4.70-6.10); RED CELL DISTRIBUTION WIDTH 14.7 % (11.6-14.8)
--- NOTE | 2019-09-04 07:15 | NUR ---
ED Nurse Note: Report given to Lilly Sorensen
[2019-09-04 07:30] LABS: ANION GAP 10 mmol/L (5-15); BLOOD UREA NITROGEN 28 mg/dL (7-18); CALCIUM 8.8 MG/DL (8.5-10.1); CARBON DIOXIDE 27 MMOL/L (21-32); CHLORIDE 105 MMOL/L (98-107); CREATININE 1.6 MG/DL (0.55-1.30); POTASSIUM 4.6 MMOL/L (3.5-5.1); SODIUM 142 MMOL/L (136-145)
[2019-09-04 07:37] VITALS: BP 161/73
--- NOTE | 2019-09-04 07:38 | NUR ---
ED Nurse Note: Received pt on bed, lying in supine position; sleeping, NAD. VSS, on 2 liters of O2 via NC.
[2019-09-04 07:44] LABS: ALANINE AMINOTRANSFERASE 16 U/L (12-78); ALBUMIN 2.5 G/DL (3.4-5.0); ALBUMIN/GLOBULIN RATIO 0.6 (1.0-2.7); ALKALINE PHOSPHATASE 79 U/L (46-116); ASPARTATE AMINO TRANSFERASE 18 U/L (15-37); BILIRUBIN,TOTAL 0.2 MG/DL (0.2-1.0)
[2019-09-04] MEDS: Albuterol/Ipratropium 3ml neb HHN SCH ×2 (08:15→08:28)
--- NOTE | 2019-09-04 08:15 | NUR ---
ED Nurse Note: Pt refused breathing treatment, RT aware. Notified MD and charge nurse.
[2019-09-04 08:25] VITALS: BP 159/70
--- NOTE | 2019-09-04 08:25 | NUR ---
AMA: SEE AMA FORM.
--- NOTE | 2019-09-04 16:09 | Diagnostic Imaging Report ---
Indication: Shortness of breath Technique: One view of the chest Comparison: 08/22/2019 Findings: Patient's chin obscured the upper mediastinum. There is again demonstrated mild interstitial congestion, appearing similar to the previous exam. The heart size is upper limits of normal. The pleural spaces are grossly clear Impression: Mild interstitial congestion, similar to earlier study of 08/22/2019
== END 2019-09-04 08:25 | disposition left against medical advice (07) ==
LOC: EDBD 04:41 → EMR 04:56
DX: J44.1 Chronic obstructive pulmonary disease with (acute) exacerbation (principal); I50.9 Heart failure, unspecified; J45.909 Unspecified asthma, uncomplicated; I10 Essential (primary) hypertension
CPT/HCPCS: 36415; 71045; 80053; 80307; 83690; 83880; 84484; 85025; 93005; 99284; J7620

== ENCOUNTER 2019-09-04 19:37 | Emergency (ER) | payer OTHER ==
[~2019-09-04] VITALS: Ht 165.1 cm; Wt 90.7 kg
--- NOTE | 2019-09-04 19:40 | NUR ---
ED Nurse Note: PT BAILEE DAWN 69 FROM [facility] C/O LT SIDE CP. PER EMS PT WAS SMOKING AND TRIGGERED CP. PT STATES 4/10 PAIN. DENIES SOB, NV. PT WAS DC FROM HOSPITAL FOR CP THIS MORNING.
[2019-09-04] MEDS ORDERED: Albuterol/Ipratropium 3ml neb HHN ONE (20:00)
[2019-09-04] MEDS ORDERED: Nitroglycerin 2% oint pkt TOPIC ONE (20:00)
--- NOTE | 2019-09-04 20:37 | Diagnostic Imaging Report ---
EXAM: XR Chest, 1 View CLINICAL HISTORY: CP TECHNIQUE: Frontal view of the chest. COMPARISON: Chest x-ray dated 09/04/2019 at 4:53 AM FINDINGS: Lungs: Improving airspace opacities. Pleural space: Unremarkable. Heart: Stable prominence of the heart. Mediastinum: Unremarkable. Bones/joints: Unremarkable. IMPRESSION: Improving airspace opacities.
--- NOTE | 2019-09-04 20:45 | NUR ---
ED Nurse Note: URINE COLLECTED AND SENT TO LAB.
[2019-09-04 21:00] VITALS: BP 182/87
--- NOTE | 2019-09-04 21:00 | NUR ---
ED Nurse Note: called lab for blood draw. bernardo made aware
[2019-09-04 21:28] LABS: APPEARANCE,URINE SLIGHTLY CLOUDY; BILIRUBIN, URINE NEGATIVE (NEGATIVE); COLOR,URINE PALE YELLOW; GLUCOSE, URINE (UA) NEGATIVE (NEGATIVE); KETONES,URINE NEGATIVE (NEGATIVE); LEUKOCYTE ESTERASE ,URINE NEGATIVE (NEGATIVE); NITRITE,URINE NEGATIVE (NEGATIVE); PH,URINE 5 (4.5-8.0); PROTEIN,URINE 3+ (NEGATIVE); UROBILINOGEN,URINE NORMAL MG/DL (0.0-1.0)
--- NOTE | 2019-09-04 21:39 | Emergency Room Report ---
History of Present Illness General Chief Complaint: Chest Pain Source: Patient, EMS Present Illness HPI EMS transported the patient here for chest pain. The patient was evaluated last night. Allegedly he was seen for chest pain. When an EJ was started he gave himself heroin and became unresponsive during the hospitalization in the emergency department. Patient was evaluated and discharged. The patient rates the chest pain in 4/10. He states it is substernal and nonradiating. There is a component it somewhat exertional but he feels more shortness of breath when he walks. He is complaining about wheezing at this time. He denies productive cough. Patient has a history of COPD, smoking, heroin abuse, edema, cellulitis. Patient denies fevers or chills. Patient has chronic edema. There is some redness. He has some calf pain. This is chronic. No sore throat, palpitations, nausea, vomiting, diarrhea, dysuria, abdominal pain, depression, anxiety, visual changes, dizziness, headache. He continues to smoke. He denies recent heroin use. Allergies: Coded Allergies: No Known Allergies (Unverified , 08/04/19) Patient History Past Medical History: see triage record Social History: Reports: smoking, drug use Reviewed Nursing Documentation: PMH: Agreed; PSxH: Agreed Nursing Documentation-PMH Hx Cardiac Problems: Yes - CHF Hx Hypertension: Yes Hx Asthma: Yes Hx COPD: Yes Hx Cancer: No Hx Gastrointestinal Problems: No Hx Neurological Problems: No Review of Systems All Other Systems: negative except mentioned in HPI Physical Exam Vital Signs Date Time Temp Pulse Resp B/P (MAP) Pulse Ox O2 Delivery O2 Flow Rate FiO2 09/04/19 19:34 97.9 89 16 196/92 (126) 96 Room Air 09/04/19 21:00 98 Sp02 EP Interpretation: reviewed, normal General Appearance: no apparent distress, GCS 15, non-toxic, obese, Chronically Ill Head: normocephalic Eyes: bilateral eye normal inspection, bilateral eye PERRL, bilateral eye EOMI ENT: moist mucus membranes Neck: full range of motion, supple Respiratory: wheezing, expiration - Minimal, other - Some chest wall tenderness Cardiovascular #1: regular rate, rhythm, edema - Ghulam bilaterally Cardiovascular #2: 2+ radial (R) Gastrointestinal: normal inspection, normal bowel sounds, non tender, no mass, non-distended, overweight Genitourinary: no CVA tenderness Musculoskeletal: back normal, normal range of motion, calf tenderness, moves extm spontaneously, gait/station normal, Autumn's Sign negative Neurologic: alert, oriented x3, grossly normal Psychiatric: mood/affect normal Skin: other - Minimal erythema bilateral lower extremities Medical Decision Making Diagnostic Impression: Primary Impression: Chest pain Qualified Codes: R07.9 - Chest pain, unspecified Additional Impressions: Edema Qualified Codes: R60.0 - Localized edema Congestive heart failure Qualified Codes: I50.9 - Heart failure, unspecified Drug-seeking behavior Bronchospasm ER Course Patient presents with chest pain. Differential includes acute myocardial infarction, chest wall pain, reflux, drug-seeking behavior, bronchospasm amongst others. Evaluation with EKG, chest x-ray and labs. Patient treated with breathing treatment and nitro paste. If labs are abnormal consideration of IV establishment. Vital signs are stable at the moment. Patient placed on cardiac cath technician. Patient complaining about anxiety and requesting lorazepam. Discussed that I would treat with Vistaril. Patient improved with Vistaril. EKG without injury. Chest x-ray improvement in interstitial cruz. Unable to obtain blood. Patient requesting pain medication. Aspirin and Tylenol ordered. Patient improved after breathing treatments. He states because he is not getting opiates he is going to leave. Discussed risk of with patient and the need for continued evaluation. Patient insists on leaving AGAINST MEDICAL ADVICE. Patient improved. Laboratory Tests Test 09/04/19 20:55 Urine Color Pale yellow Urine Appearance Slightly cloudy Urine pH 5 (4.5-8.0) Urine Specific [place] 1.010 (1.005-1.035) Urine Protein 3+ (NEGATIVE) H Urine Glucose (UA) Negative (NEGATIVE) Urine Ketones Negative (NEGATIVE) Urine Blood Negative (NEGATIVE) Urine Nitrite Negative (NEGATIVE) Urine Bilirubin Negative (NEGATIVE) Urine Urobilinogen Normal MG/DL (0.0-1.0) Urine Leukocyte Esterase Negative (NEGATIVE) Urine RBC 0 /HPF (0 - 0) Urine WBC 0-2 /HPF (0 - 0) Urine Squamous Epithelial Cells None /LPF (NONE/OCC) Urine Amorphous Sediment Moderate /LPF (NONE) H Urine Bacteria Few /HPF (NONE) Urine Hyaline Casts 0-2 /LPF (NONE) H Urine Fine Granular Casts 0-2 /LPF (NONE) H Urine Mucus Few /LPF (NONE/OCC) H Urine Opiates Screen Positive (NEGATIVE) H Urine Barbiturates Screen Negative (NEGATIVE) Phencyclidine (PCP) Screen Negative (NEGATIVE) Urine Amphetamines Screen Negative (NEGATIVE) Urine Benzodiazepines Screen Negative (NEGATIVE) Urine Cocaine Screen Negative (NEGATIVE) Urine Marijuana (THC) Screen Negative (NEGATIVE) EKG Diagnostic Results Rate: normal Rhythm: NSR ST Segments: no acute changes - Left axis deviation with right bundle branch block ASA given to the pt in ED: Yes - However patient refused Rhythm Strip Diag. Results EP Interpretation: yes Rhythm: NSR, no PVC's, no ectopy Chest X-Ray Diagnostic Results Chest X-Ray Diagnostic Results : Chest X-Ray Ordered: Yes # of Views/Limited/Complete: 1 View Indication: Chest Pain EP Interpretation: Yes Interpretation: no effusion, no pneumothorax, other - Improved interstitial markings Impression: Other Electronically Signed by: Electronically signed by Shade Renee MD Last Vital Signs Date Time Temp Pulse Resp B/P (MAP) Pulse Ox O2 Delivery O2 Flow Rate FiO2 09/04/19 22:15 97.5 72 16 182/88 97 Room Air 98 Status: improved Disposition: AGAINST MEDICAL ADVICE Condition: Improved Shade Renee MD Sep 04, 2019 21:39
--- NOTE | 2019-09-04 21:50 | NUR ---
ED Nurse Note: pt c/p generalized cp. ermd notified. will carry out order
[2019-09-04] MEDS ORDERED: Acetaminophen 500mg (ES) tab ORAL ONE (22:00)
--- NOTE | 2019-09-04 22:05 | NUR ---
ED Nurse Note: pt refused to take asa and tylenol for pain and requested to leave ama. ermd notified.
[2019-09-04 22:15] VITALS: BP 182/88
--- NOTE | 2019-09-04 22:15 | NUR ---
ED Nurse Note: PT LEFT AMA. ERMD AND RN EXPLAINED RISK OF LEAVING X3 BUT STILL REQUESTED TO LEAVE. REMOVED ALL MEDICAL DEVICES FROM PATIENT. PATIENT SIGNED AMA FORM. AMA: SEE AMA FORM.
== END 2019-09-04 22:15 | disposition left against medical advice (07) ==
LOC: EDBD 19:37 → EMR 22:15
DX: R07.9 Chest pain, unspecified (principal); R60.0 Localized edema; I50.9 Heart failure, unspecified; I10 Essential (primary) hypertension; J44.9 Chronic obstructive pulmonary disease, unspecified; Z87.891 Personal history of nicotine dependence; F11.11 Opioid abuse, in remission
CPT/HCPCS: 71045; 80307; 81003; 93005; 99283

== ENCOUNTER 2019-09-28 01:10 | Emergency (ER) | payer OTHER ==
[~2019-09-28] VITALS: Ht 165.1 cm; Wt 99.8 kg
--- NOTE | 2019-09-28 01:18 | NUR ---
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 per EMS, pt states he took "$50 worth of heroine." pt is repeatedly screaming for narcan, EMS did not give pt any, he is AOx4, PERRLA. EMS placed pt on non re breather for "comfort" they report that pt was satting in the 90's on room air. bilat lower extremity edema noted, skin appears to be red, dry and scaly
[2019-09-28 01:21] VITALS: BP_SYST 154; BP_SYST 177; BP_DIAS 82; BP_DIAS 96
--- NOTE | 2019-09-28 01:38 | NUR ---
ED Nurse Note: ERMD is at pt bedside
[2019-09-28] MEDS ORDERED: Naloxone 1mg/ml 2ml IM ONE (01:45)
--- NOTE | 2019-09-28 02:05 | Emergency Room Report ---
History of Present Illness General Chief Complaint: Substance Abuse Source: Patient Present Illness HPI Patient presents with reports of what he states is overdose on heroin he had contacted the paramedics and asking for Narcan Patient was not given initially any Narcan he presents awake Denies any chest pain or shortness of breath denies any vomiting he reports that he has a sensation that he is going to fall asleep COVID-19 risk:Travel to affect: No Allergies: Coded Allergies: No Known Allergies (Unverified , 08/04/19) Patient History Past Medical History: see triage record Reviewed Nursing Documentation: PMH: Agreed; PSxH: Agreed Nursing Documentation-PMH Hx Cardiac Problems: Yes - CHF Hx Hypertension: Yes Hx Asthma: Yes Hx COPD: Yes Hx Cancer: No Hx Gastrointestinal Problems: No Hx Neurological Problems: No Hx Seizures: Yes Review of Systems All Other Systems: negative except mentioned in HPI Physical Exam Vital Signs Date Time Temp Pulse Resp B/P (MAP) Pulse Ox O2 Delivery O2 Flow Rate FiO2 09/28/19 01:13 98.1 86 18 177/82 (113) 99 Room Air Sp02 EP Interpretation: reviewed, normal General Appearance: no apparent distress Head: normocephalic, atraumatic Eyes: bilateral eye PERRL, bilateral eye EOMI ENT: EOM grossly intact, normal pharynx Neck: supple Respiratory: lungs clear, no respiratory distress Gastrointestinal: non tender, soft Musculoskeletal: other - Patient has multiple areas of skin popping evident erythema involving both lower extremities, Neurologic: alert Skin: other - As above Medical Decision Making Diagnostic Impression: Primary Impression: Substance abuse ER Course Given the patient's history and presentation patient requires further observation and evaluation possible hydration however patient at this time Reports that he wants to leave AGAINST MEDICAL ADVICE patient was encouraged to wait for us to write a prescription for Narcan however patient eloped and left AGAINST MEDICAL ADVICE prior to getting the paperwork Rhythm Strip Diag. Results EP Interpretation: yes Rate: 80 Rhythm: NSR, no PVC's, no ectopy Last Vital Signs Date Time Temp Pulse Resp B/P (MAP) Pulse Ox O2 Delivery O2 Flow Rate FiO2 09/28/19 01:21 86 18 Room Air 09/28/19 01:21 98.1 154/96 99 Status: improved Disposition: AGAINST MEDICAL ADVICE Condition: Serious Referrals: NOT CHOSEN IPA/,REFERRING (PCP) Huyen Tapia DO Sep 28, 2019 02:05
[2019-09-28 02:15] VITALS: BP 154/96
--- NOTE | 2019-09-28 02:15 | NUR ---
AMA: Patient left against medical advice. Stated that he feels better and doesnt want to stay in the hospital. Explained risk and benefits, verbally understood. ERMD notified. AMA form signed. Pt alert and orientedx4, verbally responsive. Ambulatory. ID band removed. Left with all of his belongings.
== END 2019-09-28 02:15 | disposition left against medical advice (07) ==
LOC: EDBD 01:10 → EDUNIT# 01:10 → EMR 01:49
DX: F11.10 Opioid abuse, uncomplicated (principal); I11.0 Hypertensive heart disease with heart failure; I50.9 Heart failure, unspecified; G40.909 Epilepsy, unspecified, not intractable, without status epilepticus; J44.9 Chronic obstructive pulmonary disease, unspecified
CPT/HCPCS: 96372; 99282; J2310

== ENCOUNTER 2019-09-28 20:15 | Emergency (ER) | payer OTHER ==
[~2019-09-28] VITALS: Ht 165.1 cm; Wt 99.8 kg
--- NOTE | 2019-09-28 20:55 | NUR ---
ED Nurse Note: Pt brought in by ambulnace with [employer] at pt side. Pt stated "I do not want to be seen by the doctor. I do not know I am here. I want to go home." Per EMS, caregiver called EMS d/t pt is feeling off. ERMD was at pt side; pt left without discharge paperwork. Pt is AAO x4, ambulatory and left with all personal belongings.
--- NOTE | 2019-09-28 22:21 | Emergency Room Report ---
History of Present Illness General Chief Complaint: General Complaint Source: Patient Present Illness HPI This patient is well-known to [facility]. Apparently, the patient has a home care nurse. Per report from the home care nurse the patient had told her he wanted to kill himself. She called 911 and [employer]. The patient states that there was a misunderstanding. He states that he has a heroin addiction and he needs to go into recovery at the [facility]. He does not want to be here at the emergency department. He is here against his will. He states he is not suicidal. He admits that he does have a heroin addiction. He does not want any further evaluation in the emergency department. COVID-19 risk:Travel to affect: No Has patient experienced florez: No Allergies: Coded Allergies: No Known Allergies (Unverified , 08/04/19) Patient History Past Medical History: HTN, seizures, renal disease, other - Drug addiction Social History: Reports: drug use - Heroin abuse Reviewed Nursing Documentation: PMH: Agreed; PSxH: Agreed Nursing Documentation-PMH Hx Cardiac Problems: Yes - CHF Hx Hypertension: Yes Hx Asthma: Yes Hx COPD: Yes Hx Cancer: No Hx Gastrointestinal Problems: No Hx Neurological Problems: No Hx Seizures: Yes Review of Systems All Other Systems: negative except mentioned in HPI Physical Exam Vital Signs Date Time Temp Pulse Resp B/P (MAP) Pulse Ox O2 Delivery O2 Flow Rate FiO2 09/28/19 20:30 18 97 Room Air Sp02 EP Interpretation: reviewed, normal General Appearance: no apparent distress, alert, GCS 15, non-toxic Head: normocephalic, atraumatic Eyes: bilateral eye normal inspection ENT: hearing grossly normal, normal pharynx, no angioedema, normal voice Neck: full range of motion, supple/symm/no masses Respiratory: no respiratory distress, no retraction, no accessory muscle use, speaking full sentences Rectal: deferred Musculoskeletal: normal range of motion, calf tenderness, gait/station normal, non-tender Neurologic: alert, motor strength/tone normal, oriented x3, responsive, speech normal Psychiatric: judgement/insight normal, memory normal, mood/affect normal, no suicidal/homicidal ideation Medical Decision Making Diagnostic Impression: Primary Impression: IV drug abuse Additional Impression: Left against medical advice ER Course This patient refused further treatment. The patient denied suicidal ideation. The patient is alert and oriented x4. At this time he denies any suicidal ideation and therefore I cannot hold this patient against his will. He is not on a 5150. He requested to return to his home. He was educated that if he changes his mind he is welcome to return to [facility] for further evaluation. The patient left AGAINST MEDICAL ADVICE. Last Vital Signs Date Time Temp Pulse Resp B/P (MAP) Pulse Ox O2 Delivery O2 Flow Rate FiO2 09/28/19 20:55 18 97 Room Air Disposition: AGAINST MEDICAL ADVICE Condition: Stable Referrals: NOT CHOSEN IPA/,REFERRING (PCP) Jessi Zavala DO Sep 28, 2019 22:21
== END 2019-09-28 20:55 | disposition left against medical advice (07) ==
LOC: EDBD 20:15 → EMR 20:20
DX: F11.10 Opioid abuse, uncomplicated (principal); I11.0 Hypertensive heart disease with heart failure; I50.9 Heart failure, unspecified; J44.9 Chronic obstructive pulmonary disease, unspecified; G40.909 Epilepsy, unspecified, not intractable, without status epilepticus
CPT/HCPCS: 99281

== ENCOUNTER → 2019-09-28 | Emergency (ER) | payer OTHER ==
[~2019-09-28] VITALS: Ht 172.7 cm; Wt 104.3 kg
[2019-09-28 12:47] VITALS: BP 185/85
--- NOTE | 2019-09-28 13:25 | Emergency Room Report ---
History of Present Illness General Chief Complaint: General Complaint Source: Patient, Medical Record, EMS Present Illness HPI Patient is a 69-year-old male well-known to this emergency department brought in by EMS after using heroin. Patient was seen here yesterday for heroin abuse. 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 Patient is awake alert and oriented x3 he states that he does not want to be here and is declining any work-up. He is able to ambulate on his own. He does not want to answer any further questioning because he says that he is fine and just wants to walk across the street where he lives. COVID-19 risk:Travel to affect: No Has patient experienced florez: No Allergies: Coded Allergies: No Known Allergies (Unverified , 08/04/19) Patient History Reviewed Nursing Documentation: PMH: Agreed; PSxH: Agreed Nursing Documentation-PMH Hx Cardiac Problems: Yes - CHF Hx Hypertension: Yes Hx Asthma: Yes Hx COPD: Yes Hx Cancer: No Hx Gastrointestinal Problems: No Hx Neurological Problems: No Hx Seizures: Yes Review of Systems All Other Systems: negative except mentioned in HPI Physical Exam Vital Signs Date Time Temp Pulse Resp B/P (MAP) Pulse Ox O2 Delivery O2 Flow Rate FiO2 09/28/19 12:47 98.2 68 18 185/85 (118) 96 Room Air Sp02 EP Interpretation: reviewed, normal General Appearance: no apparent distress, alert, GCS 15, non-toxic, other - Disheveled Head: normocephalic, atraumatic, other - Dried blood at forehead patient states he does not know how it got there and does not want any imaging for this Eyes: left eye PERRL ENT: hearing grossly normal, normal pharynx, no angioedema, normal voice Neck: full range of motion, supple/symm/no masses Respiratory: chest non-tender, speaking full sentences Cardiovascular #1: regular rate, rhythm Gastrointestinal: normal inspection, non tender, soft Rectal: deferred Musculoskeletal: other - Bilateral lower extremity swelling right greater than left with erythema 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 Patient signed AMA. The patient is of adult age and has sound mind with no evidence of altered mental status suggesting metabolic or infections etiologies. I explained in layman's terms the risk of leaving against medical advise including and significant comorbidity. The patient was given reasonable options. This was explained in front of the patient and the bedside nurse RN. The AMA for was signed and witnessed by a nurse and patient. Last Vital Signs Date Time Temp Pulse Resp B/P (MAP) Pulse Ox O2 Delivery O2 Flow Rate FiO2 09/28/19 12:47 98.2 68 18 185/85 (118) 96 Room Air Disposition: AGAINST MEDICAL ADVICE Betzy Olvera M.D. Sep 28, 2019 13:25
== END | disposition left against medical advice (07) ==
LOC: EDUNIT# 12:44 → EDBD 12:51 → EMR 13:00
DX: F11.10 Opioid abuse, uncomplicated (principal); L03.116 Cellulitis of left lower limb; L03.115 Cellulitis of right lower limb; I11.0 Hypertensive heart disease with heart failure; I50.9 Heart failure, unspecified; J44.9 Chronic obstructive pulmonary disease, unspecified; G40.909 Epilepsy, unspecified, not intractable, without status epilepticus
CPT/HCPCS: 99281

== ENCOUNTER 2019-11-25 19:24 | Emergency (ER) | payer OTHER ==
[~2019-11-25] VITALS: Ht 177.8 cm; Wt 117.9 kg
[2019-11-25 19:24] VITALS: BP 125/77
[2019-11-25 20:04] VITALS: BP 165/76
--- NOTE | 2019-11-25 20:29 | Emergency Room Report ---
History of Present Illness General Chief Complaint: Altered Mental Status Source: Patient Present Illness HPI 69-year-old male presents from the street by EMS due to being found down. Apparently patient was altered in front of his apartment building. Patient admitted to using heroin today. He is known to our ER for history of heroin abuse. Patient was not given any medications prior to arrival. On arrival patient was alert oriented and denied any medical complaints. 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 Patient History Reviewed Nursing Documentation: PMH: Agreed; PSxH: Agreed Nursing Documentation-PMH Past Medical History Deferred: Pt Cognitively Impaired Past Medical History: No Stated History Hx Cardiac Problems: Yes - CHF Hx Hypertension: Yes Hx Asthma: Yes Hx COPD: Yes Hx Cancer: No Hx Gastrointestinal Problems: No Hx Neurological Problems: No Hx Seizures: Yes Review of Systems All Other Systems: negative except mentioned in HPI Physical Exam Vital Signs Date Time Temp Pulse Resp B/P (MAP) Pulse Ox O2 Delivery O2 Flow Rate FiO2 11/25/19 19:24 86 16 125/77 80 Nasal Cannula 11/25/19 19:24 2.0 11/25/19 19:25 97.5 Sp02 EP Interpretation: reviewed, normal General Appearance: no apparent distress, other - Poorly groomed Head: normocephalic, atraumatic Eyes: bilateral eye PERRL, bilateral eye EOMI ENT: hearing grossly normal, moist mucus membranes Neck: full range of motion, supple Respiratory: lungs clear, normal breath sounds, no rhonchi, no respiratory distress, no retraction, no wheezing Cardiovascular #1: normal peripheral pulses, regular rate, rhythm, no murmur Gastrointestinal: non tender, soft, non-distended, no guarding Neurologic: alert, oriented x3, no focal defects Skin: normal color, warm/dry, other - Chronic skin changes to bilateral lower extremities Medical Decision Making Diagnostic Impression: Primary Impression: Heroin abuse ER Course MDM: Patient presented from the street by EMS due to altered mental status. On arrival patient alert oriented. EKG done showed right bundle branch block. Vital signs were stable. Patient admitted to using heroin. He was more alert and oriented in the ER. He did not wish to stay for further observation and evaluation. Patient called a friend to come pick him up. He signed out AGAINST MEDICAL ADVICE. I recommended further observation as his mental status could decline on discharge however at the time of leaving AGAINST MEDICAL ADVICE he was alert, oriented, without signs of intoxication. Patient advised to avoid further IV drug use EKG Diagnostic Results Rate: normal Rhythm: NSR ST Segments: no acute changes Other Impression Right bundle branch block Last Vital Signs Date Time Temp Pulse Resp B/P (MAP) Pulse Ox O2 Delivery O2 Flow Rate FiO2 11/25/19 20:04 97.5 86 16 165/76 93 Room Air 2.0 Status: improved Disposition: AGAINST MEDICAL ADVICE Condition: Stable Referrals: NOT CHOSEN IPA/,REFERRING (PCP) Franco Ojeda M.D. November 25, 2019 20:29
== END 2019-11-25 20:05 | disposition left against medical advice (07) ==
LOC: EDBD 19:24 → EMR 19:34
DX: F11.10 Opioid abuse, uncomplicated (principal); I50.9 Heart failure, unspecified; I11.0 Hypertensive heart disease with heart failure; J45.909 Unspecified asthma, uncomplicated; G40.909 Epilepsy, unspecified, not intractable, without status epilepticus; Z53.29 Procedure and treatment not carried out because of patient's decision for other reasons
CPT/HCPCS: 99282